=== PATIENT | male | born 1955 | race Caucasian/White ===

== ENCOUNTER → 2019-03-24 | Outpatient (CLI) | payer BC ==
[~2019-03-24] MED LIST: CRES40TA PO; D3 H10002 PO; LISI10TA2 PO; METF500T4 PO; NEXI40CA PO; SUCR1SS PO; TRAD5TAB PO
--- NOTE | 2019-03-24 15:27 | RADONC ---
RADIATION ONCOLOGY CONSULTATION NOTE DATE: 03/24/2019 CHART NUMBER: [id number] DIAGNOSIS: Adenocarcinoma, distal esophagus. STAGE: IIIB, T3N2M0. ICD 10 CODE: C15.5 ECOG PERFORMANCE STATUS: 0. HISTORY OF PRESENT ILLNESS: The patient is a 63-year-old man who has a long history of GERD. He was seen by his primary care physician earlier in 2019 with a history of dysphagia associated with weight loss. He had been treated for gastroesophageal reflux disease previously. He was also seen by Dr. José Galvan MD where an upper and lower endoscopy was performed on 02/02/2019. A biopsy of the distal esophagus showed a moderately to poorly differentiated invasive adenocarcinoma. H pylori was negative. A CT scan of the chest was obtained on 02/11/2019 which revealed mediastinal lymphadenopathy, probable right hilar lymphadenopathy as well as mesenteric lymphadenopathy. A 02/16/2019 EGD with EUS revealed the distal esophagus to be stenosed. He underwent a dilatation with endoclip placement. The lesion was felt to be compatible with a T3 lesion with a paraesophageal lymph node seen measuring 1.6 cm and a subcarinal lymph node measuring 4.7 cm. Needle biopsies were nondiagnostic. On 02/02/2019 where the distal esophageal biopsy proved to be a moderately to poorly differentiated invasive adenocarcinoma. The patient had seen various consultants and a PET scan was obtained revealing an esophageal stent and soft tissue densities along the superior and inferior aspects of this stent with avid metabolic activity and a SUV max of 12.8. The paraesophageal area revealed an SUV of 2.1. Gastrohepatic chain lymphadenopathy was noted with an SUV max of 5.7 consistent with metastatic disease. Diffuse increase activity with bilateral adrenal gland activity was noted left greater than the right and this was felt to be related to possible stress-induced activity or metastatic disease. Soft tissue densities were seen just deep to the umbilicus, which was not favored to represent metastatic disease and was felt to possibly be related to infectious or an inflammatory process. The patient has seen Dr. Pearl Avila for evaluation of systemic chemotherapy and comes to us today to review the options of external beam radiotherapy. PAST MEDICAL HEALTH: Xri-dyuiorf-auewyimpq diabetes, hypertension, hypercholesterolemia, gastroesophageal reflux disease. ALLERGIES: Denied. FAMILY HISTORY: The patient apparently has a history in the family of GI malignancies and a sister with breast cancer. SOCIAL HISTORY: Single. 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 Alcohol history - rare. Smoking history - he smoked one pack per day for approximately 40 years and quit recently in 2019. MEDICATIONS: Vitamin D, esomeprazole 40 mg daily, linagliptin 5 mg daily, sucralfate 10 mg four times a day. REVIEW OF SYSTEMS: CONSTITUTIONAL: He has had a recent decrease in his appetite and has lost weight secondary to his dysphagia. He has actually lost weight from 225 earlier this year to 196 currently. HEENT: Denies any head pain, throat pain, intraoral lesions or abnormalities. Eyes: Denies visual disturbances, focal visual field defects or eye pain. RESPIRATORY: Denies any difficulty breathing, coughing, sputum production or hemoptysis. CARDIOVASCULAR: Denies any previous history of significant cardiovascular disease and also does not note any rhythmic irregularities or angina. GASTROINTESTINAL: Denies abdominal pain, nausea, vomiting, diarrhea, dysuria, hematuria or blood per rectum. MUSCULOSKELETAL: Denies any pain, difficulty with bone pain, joint pain. NEUROLOGIC: Denies any focal motor or neurologic deficits. SKIN: Negative. NEUROLOGIC: Denies any seizure disorder headaches or focal neurologic deficits. The patient primarily has had progressive odynophagia and dysphagia until most recently when he underwent stent placement but did not tolerate the stent well and has hence had the stent removed. Since the removal of the stent he has had no pain upon swallowing and although he has to wait for the food to pass the partially obstructed lesion in the distal esophagus he does not have any major discomfort. EXAMINATION FINDINGS: The patient is a well-nourished man in no acute distress. BP 116/70, temperature 97.2, pulse 63, respirations 18, height 6 feet, weight 196, O2 saturation 99%. HEENT: Normocephalic. EOMs intact. PERRLA. Fundi benign. LYMPHATICS: No palpable peripheral lymphadenopathy is appreciated in the cervical, supraclavicular, axillary or inguinal lymph node chains. LUNGS: Are clear to auscultation and to percussion. HEART: Regular without murmurs. ABDOMEN: Without evidence of hepatomegaly, masses or deep abdominal tenderness. EXTREMITIES: Without cyanosis, clubbing or edema. NEUROLOGIC EXAMINATION: Physiologic. IMPRESSION: Poorly differentiated adenocarcinoma involving the distal esophagus with partial obstruction. He is status post stent placement but the stent has been recently removed because of poor tolerance. He has periesophageal lymphadenopathy as well as a 4.7 subcarinal lymph node. Stage IIIB, T3, N2, M0. H pylori negative. PLAN OF RADIOTHERAPY: The patient may well be a candidate for local regional radiotherapy with concomitant chemotherapy. Dr. Avila has seen the patient and is considering that the patient may be a candidate for CarboTaxol. We would anticipate that the patient would benefit from external beam radiotherapy given in a neoadjuvant fashion. He has already seen a surgeon who has evaluated him and we would recommend after the administration of concomitant chemotherapy and radiotherapy that the patient be reassessed for surgery at that time. If the patient is not a candidate for surgery, we will proceed with more definitive radiotherapy/chemotherapy. The indications and possible side effects of radiotherapy as well as potential alternatives have been explained to the patient in detail. He understands and is willing to proceed as outlined. He is aware that we cannot guarantee that he will be a surgical candidate after the completion of neoadjuvant radiotherapy and will have to be evaluated by a surgeon. Should the patient not be a candidate for surgery more extensive radiotherapy and continuing chemotherapy may indeed be in order but at this time we will be treating him with neoadjuvant chemoradiation with a presumptive intent of surgical resection if possible. Thank you for referring this very fine gentleman to us and allowing us the opportunity of participation in his overall management. cc: MD Pearl Hayes MD Andrew T. Pellecchia, MD
== END ==
LOC: M ONCR 08:57
PROVIDERS: ATTEND Radiology Radiation Oncology
DX: C15.9 Malignant neoplasm of esophagus, unspecified (principal)

== ENCOUNTER 2019-04-02 14:21 | Inpatient (IN) | payer BC ==
[~2019-04-02] VITALS: Ht 182.9 cm; Wt 86.3 kg
[2019-04-02] MEDS ORDERED: MORPHINE 4 MG/ML 1ML VIAL/SYRINGE (J2270) IV PRN ×2 (15:30)
[2019-04-02] MEDS ORDERED: ACETAMINOPHEN TAB 650MG DOSE (2X325MG) PO PRN (15:30)
[2019-04-02] MEDS ORDERED: ONDANSETRON 4MG/2ML VIAL (J2405) IV PRN (15:30)
--- NOTE | 2019-04-02 15:52 | ED PDOC ---
Post-Departure Follow-Up The patient was not seen by any ED providers. He was a private patient of Dr. Shemar dueñas. This provider's name appears on the record for disposition purposes only, due to limitations of the EMR. Saji Perez M.D. Apr 02, 2019 15:52
[2019-04-02] MEDS: NS 1,000 ML IV SCH (16:06)
[2019-04-02] MEDS: PIPERACILLIN/TAZOBACTAM SOD 3.375 GM in D5W MINI-BAG PLUS 50 ML IV SCH ×2 (16:06→21:37)
[2019-04-02] MEDS ORDERED: MORP20SOL PO (16:28)
[2019-04-02] MEDS ORDERED: ISOVUE-370 76% 100ML VIAL (Q9967) As Ordered ONE (16:37)
[2019-04-02] MEDS ORDERED: VANCOMYCIN HCL 1,000 MG, VIAL MATE ADAPTER 1 EACH in D5W 250 ML IV ONE (17:00)
--- NOTE | 2019-04-02 17:07 | HPE ---
DATE OF ADMISSION: 04/02/2019 ADMITTING DIAGNOSIS: Gastrostomy tube site infection. HISTORY OF PRESENT ILLNESS: The patient is a pleasant 63-year-old man who was recently diagnosed with esophageal cancer. He apparently had developed significant dysphasia and underwent endoscopy I believe at [facility] in [place]. He was found to have a distal esophageal mass with biopsy showing carcinoma. He had a esophageal stent placed but apparently had significant discomfort and persistent difficulty swallowing and this was subsequently removed about 10 days ago. He has been seen by Dr. Avila of medical oncology and Dr. Cosby of radiation oncology. He has seen a thoracic surgeon in [place]. Planning is underway for chemo radiation and presumably resection. He was seen by Dr. Yu who on March 28 placed a percutaneous endoscopic gastrostomy (PEG) tube. The patient reports that he had some discomfort that was fairly mild initially but has increased over the last several days. Since , 03/31/2019, the discomfort has become much more severe. He has had some low grade fevers and significantly worsening pain. He was seen today at where examination revealed pus draining from around the tube with an area of marked redness and tenderness extending up to 10 cm out and inferiorly from the tube site. He was referred back to [facility] and is now being admitted for treatment. ALLERGIES: The patient has no reported known drug allergies. CURRENT MEDICATIONS: - Nexium 40 mg by mouth twice daily - Tradjenta 5 mg by mouth daily PAST SURGICAL HISTORY: Significant for a laparoscopic cholecystectomy in 2016. He has had a colonoscopy several years ago. He had an umbilical herniorrhaphy also back in June 2017. His esophageal stent was placed in February. The PEG tube was placed on March 28, 2019. MEDICAL HISTORY: Significant for hypertension. He has had hypercholesterolemia. He has diagnosis of esophageal cancer and also has diabetes mellitus. SOCIAL HISTORY: Patient has a significant other who accompanies him to the emergency department. He is a former smoker of one pack per day for 40 years and quit last month. He denies any significant alcohol intake. The patient lives in [place] and his primary physician is Dr. Wu. FAMILY HISTORY: Significant for coronary artery disease. REVIEW OF SYSTEMS: Reveals no chest pain or palpitations. He denies shortness of breath, cough or wheezing. He has had pretty good swallowing recently and has not started using the G tube yet. He denies any dysuria or hematuria. He has had no major bone or joint problems. PHYSICAL EXAMINATION: Reveals a pleasant man obviously in some discomfort lying quietly on the emergency room stretcher. Skin: Is warm and dry. HEENT: Sclerae are anicteric. Mucous membranes are moist. Neck is supple. Heart: Exam shows a regular rhythm. Lungs are clear to auscultation. The abdomen shows a 20-Maltese G tube exiting the left upper quadrant. He has an area of redness approximately 15-18 cm wide x 12 cm or so superior to inferior centered on the area of the tube placement. As the tube is tilted to examine beneath the retention disk there is release of some thick foul-smelling green-brown pus. He has marked tenderness surrounding the insertion site. The lower aspects of the abdomen are nontender and soft. Lower extremities are without edema. He has intact radial and pedal pulses. LABORATORY DATA: Laboratory studies which had been obtained at [facility] include a complete blood count (CBC) with a differential showing a white count of 16,000, hemoglobin of 12, hematocrit of 35 and platelet count of 259,000. Differential count shows 76% neutrophils, 12% lymphocytes and 12% monocytes. Chemistry profile showed a sodium of 137, potassium 3.7, chloride 102, CO2 of 23, BUN of 10, creatinine 0.7 and a glucose of 92. His total bilirubin is slightly elevated at 1.3 but the other liver function tests are normal. His total protein is 6.8 and the albumin is slightly below normal at 2.8. IMPRESSION: 1. Significant soft tissue infection at the G tube site. 2. Esophageal cancer pending chemo radiation. 3. Diabetes mellitus. 4. Hypertension. 5. History of hypercholesterolemia. PLAN: The patient has what appears to be a fairly serious infection. I have recommended given his severe pain and the infection that he be admitted to the hospital. I will obtain a CT scan to try to better ascertain the extent of his subcutaneous infection and look for any evidence of something serious such as necrotizing fasciitis. I will give him broad-spectrum antibiotics given his recent healthcare experienced to include vancomycin and piperacillin tazobactam. He will be allowed to take a diet if desired. We will start twice daily wound care to the G-tube site. I will provide him with analgesics as necessary. The patient was to start his chemo radiation this coming week and unfortunately this infection is likely to set that back some. The patient and his girlfriend were counseled regarding the plan for care. I have obtained a swab for stat Gram stain and culture and sensitivity from the wound. We will recheck his laboratories in the morning.
[2019-04-02 17:30] VITALS: BP 118/62
[2019-04-02] MEDS: OMEPRAZOLE 20 MG CAP PO SCH (21:34)
[2019-04-02] MEDS: DOCUSATE SODIUM 100 MG CAP PO SCH (21:34)
[2019-04-02 22:00] VITALS: BP 124/62
[2019-04-02] MEDS: VANCOMYCIN HCL 1,000 MG, VIAL MATE ADAPTER 1 EACH in D5W 250 ML IV SCH (23:07)
[2019-04-03 02:00] VITALS: BP 119/65
[2019-04-03] MEDS: PIPERACILLIN/TAZOBACTAM SOD 3.375 GM in D5W MINI-BAG PLUS 50 ML IV SCH ×4 (04:54→21:05)
[2019-04-03] MEDS: NORCO, ANEXSIA 5/325MG TABLET (HYDROcodone/ACETAMINOPHEN) PO PRN ×4 (05:04→23:07)
[2019-04-03 06:00] VITALS: BP 116/64
[2019-04-03 06:23] LABS: BASO % 0.2 % (0.0-1.0); EOS # 0.1 10^3/uL (0.0-0.50); EOS % 0.5 % (0.0-3.0); HEMATOCRIT 32.9 % (42.0-52.0); HEMOGLOBIN 11.2 g/dl (13.5-17.5); LYMPH # 1.7 10^3/uL (1.5-4.5); LYMPH % 12.8 % (24.0-44.0); MEAN CORPUSCULAR HEMOGLOBIN 31.4 pg (27.0-33.0); MEAN CORPUSCULAR VOLUME 92.2 fl (80.0-96.0); MONO # 1.6 10^3/uL (0.0-0.8); MONO % 12.2 % (0.0-5.0); NEUTROPHILS # 9.6 10^3/uL (1.8-7.7); NEUTROPHILS % 73.9 % (36.0-66.0); PLATELET COUNT, AUTOMATED 272 10^3/uL (150-450); RED BLOOD COUNT 3.57 10^6/uL (4.30-6.10); WHITE BLOOD COUNT 12.9 10^3/uL (4.0-10.0)
[2019-04-03 06:41] LABS: BLOOD UREA NITROGEN 7 MG/DL (7-18); CALCIUM LEVEL 8.2 MG/DL (8.8-10.2); CARBON DIOXIDE LEVEL 26 MEQ/L (21-32); CHLORIDE LEVEL 104 MEQ/L (98-107); CREATININE FOR GFR 0.68 MG/DL (0.70-1.30); GLOMERULAR FILTRATION RATE > 60.0 (>49); GLUCOSE, FASTING 100 MG/DL (70-100); POTASSIUM SERUM 3.5 MEQ/L (3.5-5.1); SODIUM LEVEL 138 MEQ/L (136-145)
[2019-04-03] MEDS: VANCOMYCIN HCL 1,000 MG, VIAL MATE ADAPTER 1 EACH in D5W 250 ML IV SCH ×3 (06:50→23:07)
[2019-04-03] MEDS: NS 1,000 ML IV SCH ×4 (08:00→23:06)
--- NOTE | 2019-04-03 08:52 | REP ---
CT ABDOMEN WITH IV CONTRAST: TECHNIQUE: Axial contrast enhanced images from the lung bases to the pubic symphysis using 100 mL Isovue 370 intravenous contrast material with multiplanar reformations. COMPARISON: 03/04/2019 from outside institution. The visualized lung bases demonstrate mild fibroatelectatic change. A gastrostomy tube is seen anteriorly entering the stomach. At that location of the anterior abdominal wall there is diffuse soft tissue edema and cellulitis with thickening of the left rectus muscle. No abscess collection is seen. The patient has had a prior cholecystectomy. There is focal fatty infiltration of the liver anteriorly along the fissure for the ligamentum teres. Spleen, right adrenal, and pancreas are unremarkable. There is a small left adrenal nodule 1.3 cm in diameter which may represent an adenoma. 1 cm cyst is seen in the upper pole of the right kidney. There are two cysts in the mid left kidney, the larger measuring 2.7 cm. There is no hydronephrosis. There is atherosclerotic calcification of the abdominal aorta without aneurysm. Multiple subcentimeter lymph nodes are seen in the periaortic region and throughout the mesentery. There is an enlarged lymph node in the gastrohepatic ligament which has increased in size since prior studies and may be reactive measuring 3.2 x 1.5 cm. Distal esophagus appears thickened. No free air or free fluid seen. IMPRESSION: Gastrostomy tube present with findings most consistent with cellulitis of the anterior abdominal wall at its entrance site. There is thickening of the left rectus muscle. No abscess collection is seen in the abdominal wall. 1.3 cm left adrenal nodule probably represents an adenoma. Bilateral renal cysts. Multiple scattered subcentimeter lymph nodes throughout the abdomen with an enlarged lymph node in the gastrohepatic ligament which has increased in size since prior studies measuring 3.2 x 1.5 cm. This may be reactive. No intra-abdominal abscess or free fluid. Electronically Signed by Onur Berger MD 04/03/2019 04:18 P
[2019-04-03] MEDS: DOCUSATE SODIUM 100 MG CAP PO SCH ×2 (09:13→21:05)
[2019-04-03] MEDS: OMEPRAZOLE 20 MG CAP PO SCH ×2 (09:14→21:05)
[2019-04-03] MEDS: ENOXAPARIN 40 MG/0.4 ML SYRINGE (J1650) SC SCH (09:14)
[2019-04-03 10:00] VITALS: BP 116/63
--- NOTE | 2019-04-03 10:16 | PHACANCOPD ---
PHARMACY VANCOMYCIN DOSING Pt Demographics Demographics Patient Age:63 , Weight:86.300 , Gender: male Adjusted Body Weight Date: 04/03/19, Adjusted Body Weight: Kg Events Past 24 Hours Events Past 24 Hours: NO: Dialysis, Diuretic Therapy, Change in CrCl, Fever, Elevation in WBC, Pending Diagnostics, Pending Procedures, Other Vancomycin Vancomycin indication: post-op infection Vancomycin Target Ranges: 10-20 mcg/ml Vancomycin Load Y/N: Yes Load Dose Date Time Vancomycin Load Dose: 1000mg Date: 04/02 Time: ~18:30 Vancomycin Dose Date: 04/02/19. Current Vancomycin Dose: [1g IV q8h @23] Intermittent Dosing?: No Labs Labs Item Value Date Time White Blood Count 12.9 10^3/uL H 04/03/19 0547 Creatinine 0.68 MG/DL L 04/03/19 0546 Micro Microbiology 04/02/19 Gram Stain - Final, Resulted 04/02/19 Wound Culture, Resulted Pending Creatinine Clearance Date:04/03/19. Creatinine Clearance: [>100 ml/min]. Pending Labs Vanco trough scheduled 04/04 @06:00 Assessment and Plan Maintaining Current Dose?: Yes Reason for dose change: No Dose Change Pharmacist Note Pharmacist Note Date: 04/03/19. Pharmacist note: pt has been started on Zosyn and Vancomycin for a infected post-op PEG site. He has not been on vancomycin at our facility in the past. He has recently been diagnosed with esophageal cancer. He received vancomycin 1g last night at ~18:30 and I started him on 1g IV q8h ~4.5 hours later. Would culture is pending. I have a trough scheduled for tomorrow morning. We will continue to monitor and make adjustments as necessary. Daryn Hughes Pharm.D. Apr 03, 2019 10:16
[2019-04-03 14:00] VITALS: BP 135/71
[2019-04-03 22:00] VITALS: BP 126/70
[2019-04-04 02:00] VITALS: BP 131/67
[2019-04-04] MEDS: PIPERACILLIN/TAZOBACTAM SOD 3.375 GM in D5W MINI-BAG PLUS 50 ML IV SCH ×4 (04:56→21:28)
[2019-04-04 06:00] VITALS: BP 125/70
[2019-04-04 06:13] LABS: BASO % 0.4 % (0.0-1.0); EOS # 0.2 10^3/uL (0.0-0.50); EOS % 1.8 % (0.0-3.0); HEMATOCRIT 34.3 % (42.0-52.0); HEMOGLOBIN 11.6 g/dl (13.5-17.5); LYMPH # 1.3 10^3/uL (1.5-4.5); LYMPH % 16.1 % (24.0-44.0); MEAN CORPUSCULAR HGB CONC 33.8 g/dl (32.0-36.5); MEAN CORPUSCULAR VOLUME 94.5 fl (80.0-96.0); MONO % 12.2 % (0.0-5.0); NEUTROPHILS # 5.8 10^3/uL (1.8-7.7); NEUTROPHILS % 69.3 % (36.0-66.0); PLATELET COUNT, AUTOMATED 283 10^3/uL (150-450); RED BLOOD COUNT 3.63 10^6/uL (4.30-6.10); WHITE BLOOD COUNT 8.3 10^3/uL (4.0-10.0)
[2019-04-04] MEDS: VANCOMYCIN HCL 1,000 MG, VIAL MATE ADAPTER 1 EACH in D5W 250 ML IV SCH ×3 (06:53→21:28)
[2019-04-04] MEDS ORDERED: ONDA8TAB7 PO (08:10)
[2019-04-04] MEDS ORDERED: PROC10TA4 PO (08:10)
[2019-04-04] MEDS: OMEPRAZOLE 20 MG CAP PO SCH ×2 (09:26→21:28)
[2019-04-04] MEDS: ENOXAPARIN 40 MG/0.4 ML SYRINGE (J1650) SC SCH (09:26)
[2019-04-04] MEDS: DOCUSATE SODIUM 100 MG CAP PO SCH ×2 (09:26→21:28)
--- NOTE | 2019-04-04 09:56 | IPN ---
DATE: 04/03/2019 HISTORY: The patient was admitted yesterday with cellulitis and abscess formation around a recently implanted percutaneous endoscopic gastrostomy. He reports he is feeling better today on his current antibiotics. There is much less pain. Vital signs show that he has been afebrile since admission. His pulse is in the 70s to 90s today and his blood pressure is good. Intake and Output: He has been taking some oral fluids. His urine output today is brisk with a combination of his oral intake and his IV fluid. PHYSICAL EXAMINATION: The patient is looking much more comfortable lying in the hospital bed today. Examination of the abdomen shows that there is no further pus draining around the tube, but the edges of the wound do look still somewhat dark. The area of redness is diminished, but there is still an area of induration particularly to the right of the insertion site that is quite indurated and tender. LABORATORY STUDIES: Today he has a white count of 13 with a hemoglobin of 11, hematocrit of 33 and a platelet count of 272,000. Differential count shows 74% neutrophils, 13% lymphocytes and 12% monocytes. A chemistry profile shows normal electrolytes with a BUN of 7, creatinine of 0.7 and a glucose of 100. Gram stain from his wound yesterday shows many white cells with many gram-positive cocci in chains and many gram-negative rods. IMPRESSION: The patient is responding well to his antibiotic therapy for his infected G-tube site. PLAN: We will await his culture results and continue the Zosyn and vancomycin in the interim. I will cut back his IV rate as he is taking some fluids adequately orally. Hopefully, he will be ready for discharge in the next 24-48 hours, but we need to see his culture report to determine continuing antibiotic therapy.
[2019-04-04 10:00] VITALS: BP 133/78
[2019-04-04] MEDS: NORCO, ANEXSIA 5/325MG TABLET (HYDROcodone/ACETAMINOPHEN) PO PRN ×2 (13:38→21:38)
[2019-04-04 14:00] VITALS: BP 141/79
[2019-04-04 18:00] VITALS: BP 139/80
--- NOTE | 2019-04-04 22:46 | IPN ---
DATE: 04/04/2019 HISTORY: The patient was admitted on 04/02/2019 with a severe infection at the site of a recently implanted gastrostomy tube. He was started on vancomycin and Zosyn for broad antibiotic coverage. He reports that he is feeling much better today with significantly decreased pain. The amount of discharge seems to have decreased as well. Vital signs: Show that he has been afebrile over the past 24 hours. His pulse is in the 60s and 70s. Blood pressure is good. Intake and output shows that yesterday he had 4000 in with 3300 out. Physical exam shows that the redness is effectively resolved. He still has some mild induration extending out about 3-4 cm from the G-tube site, but the tenderness is significantly reduced. The drainage is quite reduced as well. Laboratory studies show that his white count is down to normal at 8 with a differential showing 69% neutrophils, 16% lymphocytes, and 12% monocytes. Hemoglobin is 12 with a hematocrit of 34 and the platelet count is 283,000. Culture results are still pending. The gram stain had shown gram-positive cocci and gram-negative rods. IMPRESSION: The patient is improving rapidly from his wound infection from his G-tube placement. PLAN: I will continue his vancomycin and Zosyn until tomorrow. Hopefully by then we will have his culture results available and be able to discharge him on antibiotics based on these culture results. If the results are not yet available but he is still doing well, I will discharge him on some antibiotics and then reassess these once the culture results are back.
[2019-04-05 01:53] VITALS: BP 125/78
[2019-04-05] MEDS: PIPERACILLIN/TAZOBACTAM SOD 3.375 GM in D5W MINI-BAG PLUS 50 ML IV SCH ×2 (05:21→10:19)
[2019-04-05 06:00] VITALS: BP 129/77
[2019-04-05] MEDS: VANCOMYCIN HCL 1,000 MG, VIAL MATE ADAPTER 1 EACH in D5W 250 ML IV SCH ×2 (06:29→15:01)
[2019-04-05] MEDS: OMEPRAZOLE 20 MG CAP PO SCH (08:58)
[2019-04-05] MEDS: DOCUSATE SODIUM 100 MG CAP PO SCH (08:58)
[2019-04-05] MEDS: ENOXAPARIN 40 MG/0.4 ML SYRINGE (J1650) SC SCH (08:59)
[2019-04-05 10:00] VITALS: BP 143/78
[2019-04-05 10:32] LABS: BLOOD UREA NITROGEN 4 MG/DL (7-18); CALCIUM LEVEL 8.6 MG/DL (8.8-10.2); CARBON DIOXIDE LEVEL 27 MEQ/L (21-32); CHLORIDE LEVEL 106 MEQ/L (98-107); CREATININE FOR GFR 0.81 MG/DL (0.70-1.30); GLOMERULAR FILTRATION RATE > 60.0 (>49); GLUCOSE, FASTING 105 MG/DL (70-100); POTASSIUM SERUM 3.8 MEQ/L (3.5-5.1); SODIUM LEVEL 139 MEQ/L (136-145)
[2019-04-05 14:00] VITALS: BP 139/82
[2019-04-05] MEDS ORDERED: FLAG250T PO (15:29)
[2019-04-05] MEDS ORDERED: BACT800T5 PO (15:29)
--- NOTE | 2019-04-06 10:23 | IPN ---
DATE: 04/05/2019 HISTORY: The patient was admitted on the afternoon of the 02 of April with a severe infection at the site of a recent gastrostomy tube placement. Cultures were obtained which have been growing several organisms, but these have not yet been identified and antibiotic sensitivities have not been determined. He is feeling much better today. The tenderness has gone down even since yesterday and he has been afebrile. He has been able to take some regular food. Vital signs show that he has been old afebrile over the past 24 hours. Pulses in the 70s. His blood pressure is normal. Intake and output show that yesterday he had 2800 mL in with 2300 mL out. He is voiding well and had a bowel movement yesterday. Physical exam shows that the abdomen is flat and soft. The induration around the G-tube site is much improved and the redness is completely resolved. There is very little tenderness now. The G-tube site itself looks clean and when the tube is gently moved there is no further drainage of pus around the tube. IMPRESSION: The patient is doing much better now on hospital day 3 from treatment of severe infection at his G tube site. His culture results are still pending, though I was told by the supervisor laboratory when I called that there are several organisms being identified to be determined. PLAN: The patient is doing well enough that I will send him home on oral antibiotics. I will send him home on Septra and Flagyl. These should cover the possibility of Methicillin-resistant Staphylococcus aureus (MRSA) and other organisms that would usually be encountered in such an infection. I can reassess the adequacy once the final culture and sensitivities are back. He is not requiring any prescription pain medications at this time. He will need to reconnect with medical oncology to determine the timing of his start of chemotherapy and I will alert their office that he is being discharged home. I have recommended that he follow-up in my office either with myself or one of my colleagues in the next 10 days or so to ensure that he continues to do well. He will be given five days worth of antibiotics with the Septra and Flagyl.
== END 2019-04-05 15:55 | disposition home or self-care (01) | DRG 252 ==
LOC: EDBD 14:21 → M ED 14:21 → M ED INP 15:28 → M MS5PR 17:30
PROVIDERS: ADMIT Surgery; ATTEND Surgery
DX: K94.22 Gastrostomy infection (principal); L03.311 Cellulitis of abdominal wall; C15.3 Malignant neoplasm of upper third of esophagus; Z79.899 Other long term (current) drug therapy; I10 Essential (primary) hypertension; E11.9 Type 2 diabetes mellitus without complications; Z87.891 Personal history of nicotine dependence

== ENCOUNTER 2019-04-15 08:47 | Outpatient (RCR) | payer BC ==
--- NOTE | 2019-03-29 09:53 | RADONC ---
RADIATION ONCOLOGY SIMULATION NOTE DATE: 03/29/2019 CHART #: [id number] Mr. Celaya was taken to the CT scan for CT simulation of his lower esophageal field. CT was accomplished without difficulty or discomfort. Radiation treatment planning is underway and radiation treatments will begin subsequently. An immobilization device was created without difficulty or discomfort. It will be used throughout the course of treatment. I was physically present throughout the course of CT simulation.
--- NOTE | 2019-03-31 08:46 | MEDONCTEEN ---
MEDICAL ONCOLOGY TELEPHONE NOTE DATE: 03/30/2019 Testing on the diagnostic biopsy from [facility] for HER2 came back as negative for evidence of neoplastic tissue on the H and E slide, and FISH or HER2 was not performed. I spoke with the scientific laboratory supervisor Deepika. They confirmed that the correct block was sent. [facility] She will speak with her attending doctor/pathologist tomorrow to make sure there isn't additional tissue that could be evaluated but she speculates the tissue sample was so small that to little remained in the block that was sent. I asked if there were additional already prepped slides that could be used, and she said no. Thus we may have no knowledge of HER2 status and possibly will need a rebiopsy to obtain at. I will await Deepika's call back, I gave her my cell to get in touch with me. The block in question was done at [facility] [phone]. Diagnosis number A with moderate to poorly differentiated invasive adenocarcinoma. There was, in addition to that case, a small bowel biopsy and antrum biopsy done on the same , but she confirms that the correct block from that overall case was sent for evaluation. addendum 03/31/19: an additional H E slide was found for HER2 testing and this will be done Electronically Signed by Pearl Avila MD 03/31/2019 11:20 A DD: Pearl Avila MD 03/30/2019 12:32 P DT: [email or web address] 03/31/2019 08:40 A CC:
[~2019-04-15 08:47] MED LIST changes: +BACT800T5 PO; +FLAG250T PO; +MORP20SOL PO; +ONDA8TAB7 PO; +PROC10TA4 PO
== END 2019-04-17 ==
LOC: M ONCR 08:47
PROVIDERS: ATTEND Radiology Radiation Oncology
DX: C15.5 Malignant neoplasm of lower third of esophagus (principal)

== ENCOUNTER 2019-05-17 08:51 | Outpatient (RCR) | payer BC ==
--- NOTE | 2019-04-18 09:58 | RADONC ---
RADIATION ONCOLOGY PROGRESS NOTE DATE: 04/18/2019 CHART #: [id number] DIAGNOSIS: Mr. 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 His dose to date is 1080 cGy of an anticipated 3960 cGy and treatments appear to be doing relatively well. REVIEW OF SYSTEMS: He denies any nausea, vomiting, diarrhea, odynophagia, dysphagia or significant weight loss. His energy level is such that he is able to maintain most day-to-day activities without any alteration of his lifestyle. The patient denies any skin irritation. EXAMINATION FINDINGS: The skin within the irradiated volume shows neither erythema nor desquamation. Lymphatics: No palpable peripheral lymphadenopathy is appreciated. Lungs are clear. The remainder of the physical examination is unchanged. IMPRESSION: Tolerating therapy well. PLAN: Treatments to continue. MTDD
--- NOTE | 2019-04-25 10:27 | RADONC ---
RADIATION ONCOLOGY PROGRESS NOTE DATE: 04/25/2019 CHART NUMBER: [id number] Mr. Celaya is presently at a dose of 1620 cGy to his esophagus and is tolerating treatments quite well at this point with no complaints related to his radiation therapy other than some hesitancy with swallowing. He does not call it pain at this time. The patient's review of systems is positive for some difficulty swallowing dry foods but is otherwise noncontributory. He denies nausea, vomiting, fevers, chills, night sweats, diplopia, headaches, anxiety or depression, anorexia, weight loss, visual disturbances, chest pain, urinary or bowel difficulties, bone pain, or neurological problems. PHYSICAL EXAMINATION: The patient's skin is in good condition with no evidence of moist or dry desquamation. The remainder of his physical exam remains unchanged. Mr. Celaya is tolerating treatments quite well and radiation will continue as scheduled.
--- NOTE | 2019-05-02 14:37 | RADONC ---
RADIATION ONCOLOGY PROGRESS NOTE: DATE: 05/02/2019 CHART NUMBER: [id number] Mr. Celaya is presently at a dose of 2520 cGy to his esophagus and overall is tolerating his treatments quite well with no significant difficulties related to his radiation therapy other than feeling of his food getting stuck a little bit. REVIEW OF SYSTEMS: The patient's review of systems is positive for some mild difficulty with swallowing solid foods but is otherwise noncontributory. He denies nausea, vomiting, fevers, chills, night sweats, diplopia, headaches, anxiety or depression, anorexia, weight loss, visual disturbances, chest pain, urinary or bowel difficulties, bone pain, or neurological problems. PHYSICAL EXAMINATION: The patient's skin is in good condition with no evidence of moist or dry desquamation. The remainder of the physical exam remains unchanged. Mr. Celaya is tolerating treatments quite well and radiation will continue as scheduled.
--- NOTE | 2019-05-11 06:50 | RADONC ---
RADIATION ONCOLOGY PROGRESS NOTE DATE: 05/10/2019 CHART #: [id number] Mr. Celaya is presently at a dose of 3420 cGy to his esophagus and is tolerating treatments quite well at this point with no significant difficulties related to his radiation therapy other than some difficulty swallowing hard dry foods or steak. REVIEW OF SYSTEMS: The patient's review of systems is positive for some difficulty swallowing hard or dry foods which seem to get stuck in his upper throat, but is otherwise noncontributory. Denies nausea, vomiting, fevers, chills, night sweats, diplopia, headaches, anxiety or depression, anorexia, weight loss, visual disturbances, chest pain, urinary or bowel difficulties, bone pain, or neurological problems. PHYSICAL EXAMINATION: The patient's skin is in excellent condition with no evidence of radiation change present. There is no moist or dry desquamation. The remainder of his physical exam remains unchanged. Mr. Celaya is tolerating treatments quite well and radiation will continue as scheduled.
--- NOTE | 2019-05-17 08:09 | RADONC ---
RADIATION ONCOLOGY PROGRESS NOTE DATE: 05/16/2019 CHART #: [id number] Mr. Celaya is presently at a dose of 4320 cGy to his esophagus and is overall tolerating treatments quite well with no significant difficulties related to his radiation therapy. He is having no significant pain or discomfort. REVIEW OF SYSTEMS: The patient's review of systems is noncontributory. Denies nausea, vomiting, fevers, chills, night sweats, diplopia, headaches, anxiety or depression, anorexia, weight loss, visual disturbances, chest pain, urinary or bowel difficulties, bone pain, or neurological problems. PHYSICAL EXAMINATION: The patient's skin is in good condition with no evidence of moist or dry desquamation. The remainder of his physical exam remains largely unchanged. Mr. Celaya is tolerating treatments quite well and radiation will continue as scheduled.
[~2019-05-17 08:51] MED LIST changes: +LISI10TA15 PO; -LISI10TA2 PO; +MAGICMW SSP; +METF-791 PO; -METF500T4 PO; +ONDA8TAB10 PO; -ONDA8TAB7 PO
--- NOTE | 2019-05-18 14:11 | RADONC ---
RADIATION ONCOLOGY TREATMENT SUMMARY: DATE: 05/17/2019 CHART NUMBER: [id number] DIAGNOSIS: Adenocarcinoma, distal esophagus. STAGE: III B, T3, N2, M0 ECOG PERFORMANCE STATUS: 0 Mr. Celaya is a 63-year-old white male with the diagnosis of a stage III B, T3, N2, [id number] of the distal esophagus who presented to us for consideration of preoperative radiation therapy combined with chemotherapy as a therapeutic option. We treated the patient to his esophagus for a total dose of 4500 cGy delivered in 25 fractions of 180 cGy each over 35 elapsed days from 04/11/2019 through 05/17/2019. The patient's esophagus was treated on a linear accelerator utilizing a 3D conformal technique utilizing a 15 MV photon beam. We initially treated the patient with anterior and posterior parallel opposed chau for a dose of 3960 cGy and subsequently delivered the final three fractions utilizing oblique chau in order to maintain the spinal cord and other structures within tolerance limits. Mr. Celaya tolerated his treatments quite well and was able complete therapy as prescribed without interruption. He is scheduled to see his surgeon Dr. Dave Fall MD for discussion of subsequent surgery. In addition, I have set him up to see me again in routine followup visit in one months' time. cc: Jamey Archuleta MD
[2019-08-01] MEDS ORDERED: ZANT150T40 PO (14:38)
[2019-08-03] MEDS ORDERED: LOVE1INJ SC (10:24)
[2019-09-05] MEDS ORDERED: CHLOR25TA PO (09:02)
[2019-09-19] MEDS ORDERED: ESOM20CA25 PO (08:23)
[2019-10-18] MEDS ORDERED: METF-791 PO (08:51)
== END 2019-05-18 ==
LOC: M ONCR 08:51
PROVIDERS: ATTEND Radiology Radiation Oncology
DX: C15.5 Malignant neoplasm of lower third of esophagus (principal)

== ENCOUNTER → 2019-06-15 | Outpatient (CLI) | payer BC ==
[~2019-06-15] MED LIST changes: -ONDA8TAB10 PO; +ONDA8TAB7 PO
--- NOTE | 2019-06-17 06:21 | RADONC ---
RADIATION ONCOLOGY FOLLOWUP NOTE DATE: 06/15/2019 CHART #: [id number] Mr. Celaya is presenting to us today for routine followup visit 1 month post completion of preoperative radiation therapy to his esophagus. The patient is doing quite well at this point with no complaints at this time related to his radiation therapy. He is having no difficulties with his feeding tubes. REVIEW OF SYSTEMS: The patient's review of systems is largely noncontributory. Denies nausea, vomiting, fevers, chills, night sweats, diplopia, headaches, anxiety or depression, anorexia, weight loss, visual disturbances, chest pain, urinary or bowel difficulties, bone pain, or neurological problems. PHYSICAL EXAMINATION: The patient is a well-developed, well-nourished male in no acute distress. HEENT exam is normocephalic, atraumatic. Extraocular movements are intact. There is no palpable cervical, supraclavicular, infraclavicular, axillary, or inguinal lymphadenopathy present. Lungs are clear to auscultation and percussion. Heart has a regular rate and rhythm. Abdomen is benign with no hepatosplenomegaly, masses, or tenderness. Rectal examination reveals a normal anal sphincter tone. His prostate is smooth with no evidence of nodularity. Skeletal examination reveals no tenderness to pressure or percussion of the bony skeleton. Extremities reveal no clubbing, cyanosis, or edema. Neurologic exam is grossly intact, as is the remainder of the physical examination. ASSESSMENT: The patient is clinically doing well at this point. He is scheduled for surgery on 07/08/2019 in one month. In addition, he is continuing his close followup with his medical oncologist, Dr. Avila. In light of this, I am discharging this patient at this time from our followup except on a p.r.n. basis. cc: DO Saurabh Stephens Jr, MD [place], MD
== END ==
LOC: M ONCR 10:06
PROVIDERS: ATTEND Radiology Radiation Oncology
DX: C15.5 Malignant neoplasm of lower third of esophagus (principal)

== ENCOUNTER → 2019-08-04 | Outpatient (CLI) | payer BC ==
[~2019-08-04] MED LIST changes: +LIDOCAINE 1% MDV 20ML VIAL As Ordered ONE; +LOVE1INJ SC; +MIDAZOLAM INJ 2 MG/2 ML VIAL (J2250) As Ordered ONE; +ZANT150T40 PO; +ceFAZolin 1GM INJ (J0690 PER 500MG) As Ordered ONE; +diphenhydrAMINE INJ 50MG/ML VIAL (J1200) As Ordered ONE; +fentaNYL 100 MCG/2 ML INJECTION (J3010) As Ordered ONE
--- NOTE | 2019-08-04 09:16 | IRHP ---
[facility] IR Pre-Procedure H & P General Date of Service: Aug 04, 2019 Procedure: Same Day Surgery Interval History and Physical I have seen the patient and reviewed last H & P performed within 30 days. There is no significant interval change. History of Present Illness Chief Complaint The patient is a 64-year-old male admitted with a reason for visit of Esophageal Ca. PRE-PROCEDURE DIAGNOSIS: esophageal ca HEART: normal rate. LUNGS: normal breathing at rest. ASA Classification ASA Classification: II-Mild systemic disease Mallampati Score: I NPO: Yes Problems with prior sedation: No Obstructive Sleep Apnea: No Plan moderate sedation Allergies Coded Allergies: No Known Allergies (Unverified , 03/25/19) Home Medications Scheduled Enoxaparin Sodium (Lovenox), 40 MG SC DAILY, (Reported) Linagliptin (Tradjenta), 5 MG PO QAM, (Reported) Ranitidine Hcl (Zantac), 5 MG PO DAILY, (Reported) Discontinued Medications Esomeprazole Magnesium (Nexium), 40 MG PO BID, (Reported) Discontinued Reason: Pt states not taking Magic Mouthwash (First-Mouthwash Blm), 10 ML SSP QID PRN for MUCOSITIS Discontinued Reason: Pt states not taking Morphine Sulfate (Morphine Sulfate Concentrate), 0.5 ML PO PRN PRN for PAIN, (Reported) Discontinued Reason: Pt states not taking Ondansetron HCl (Ondansetron HCl), 8 MG PO Q6H PRN for NAUSEA OR VOMITING Discontinued Reason: Pt states not taking Prochlorperazine Maleate (Prochlorperazine Maleate), 10 MG PO Q8HP PRN for NAUSEA OR VOMITING Discontinued Reason: Pt states not taking VS, I&O, 24H, Fishbone Vital Signs/I&O Vital Signs Date Time Temp Pulse Resp B/P (MAP) Pulse Ox O2 Delivery O2 Flow Rate FiO2 08/04/19 09:00 97.9 78 16 97 Room Air MARIO ALBERTO MCGARRY MD Aug 04, 2019 09:16
--- NOTE | 2019-08-04 10:38 | REP ---
IR Ultrasound and fluoroscopy-guided port placement. IR Ultrasound of the neck. IR Moderate sedation. Clinical information: Esophageal cancer. Physician: Dr. Acuña. Procedure: The patient was advised of the benefits, risks, and alternatives of the procedure and informed consent was obtained. A time-out was performed with verification of the patient's name, MRN, site of procedure and type of procedure to be performed. The patient was positioned in the supine position on the angiographic table. The site was prepped and draped in the usual sterile fashion. Moderate sedation was performed by the physician including the presence of an independent trained observer who assisted and monitored the patient's level of consciousness and physiologic status. Following the administration of fentanyl and Versed , the physician spent 45 minutes of continuous face to face time with the patient. Ultrasound of the neck reveals a patent and compressible right internal jugular vein. A reimbursement specialist radiograph reveals no gross abnormality . The neck and anterior chest wall were anesthetized with lidocaine. The right internal jugular vein was accessed using a microintroducer needle under ultrasound guidance, via a lateral approach. An 018 wire was advanced into the superior vena cava, the needle was removed and a microsheath was placed. An Amplatz wire was then passed into the inferior vena cava. An incision at the internal jugular vein access site and anterior chest wall were made using a scalpel. An incision was made at the anterior chest wall. A small pocket was created using a combination of blunt and sharp dissection. A tunneling device was then used to pass the catheter from the pocket to the neck puncture site. An 8-Lao angio dynamics Smart power port was then positioned in the pocket. The catheter was then measured and cut. The introducer sheath was exchanged for a peel-away sheath. The catheter was passed through the peel-away sheath into the internal jugular vein and the peel-away sheath was removed. The port tip was positioned at the cavoatrial junction . The port was then accessed with a Jeter needle. The port flushes and aspirates well. The puncture site in the neck was closed. The chest wall incision was then closed with 2-0 Vicryl and 4-0 Monocryl. Glue and Steri-Strips were applied. A sterile dressing was then applied. The patient tolerated the procedure well and was returned to the PRU in stable condition. Estimated blood loss: <5 ml. Complications: None. Conclusion: 1. Successful placement of an 8-Lao angio dynamics Smart power port via the right internal jugular vein. The port is ready for immediate use. 2. Patient to follow up in IR clinic in 2 weeks. Thank you for this referral. Electronically Signed by Hannah Acuña MD 08/04/2019 10:36 A
[2019-08-04 11:58] VITALS: BP 135/81
== END ==
LOC: M IRPRO 08:57
PROVIDERS: ATTEND Radiology Diagnostic Radiology
DX: C15.9 Malignant neoplasm of esophagus, unspecified (principal)
CPT/HCPCS: 36561; 76937; 99152; 99153; C1769; C1788; C1894; J0690; J1200; J2250; J3010

== ENCOUNTER → 2019-08-16 | Outpatient (POV) | payer BC ==
[~2019-08-16] VITALS: Ht 182.9 cm; Wt 77.3 kg
[~2019-08-16] MED LIST changes: -LIDOCAINE 1% MDV 20ML VIAL As Ordered ONE; -MIDAZOLAM INJ 2 MG/2 ML VIAL (J2250) As Ordered ONE; -ceFAZolin 1GM INJ (J0690 PER 500MG) As Ordered ONE; -diphenhydrAMINE INJ 50MG/ML VIAL (J1200) As Ordered ONE; -fentaNYL 100 MCG/2 ML INJECTION (J3010) As Ordered ONE
[2019-08-16 10:00] VITALS: BP 127/73
--- NOTE | 2019-08-16 11:49 | IRPN ---
[facility] IR Progress Note IR Progress Note DATE: Aug 16, 2019 FOLLOW-UP: 2 weeks status post right chest wall port placement. No fevers or chills. No pain or discharge. Port scheduled to be used next week. ON EXAMINATION: Right chest wall port site - no tenderness. No fluctuance. No discharge. IMPRESSION: Doing well status post port placement. No further follow-up scheduled unless initiated by patient or infusion. Thank you for this referral Allergies Coded Allergies: No Known Allergies (Unverified , 03/25/19) VS,Fishbone, I+O VS, Fishbone, I+O Vital Signs Date Time Temp Pulse Resp B/P (MAP) Pulse Ox O2 Delivery O2 Flow Rate FiO2 08/16/19 10:00 98.1 92 16 127/73 (91) 98 Room Air MARIO ALBERTO MCGARRY MD Aug 16, 2019 11:49
== END ==
LOC: M IRPOV 09:30
PROVIDERS: ATTEND Radiology Diagnostic Radiology
DX: Z45.2 Encounter for adjustment and management of vascular access device (principal)

== ENCOUNTER → 2020-01-04 | Outpatient (CLI) | payer BC ==
[~2020-01-04] MED LIST changes: +CHLOR25TA PO; +ESOM20CA25 PO; +GASTROGRAFIN SOLUTION 30ML (Q9963) As Ordered ONE; +ISOVUE-370 76% 100ML VIAL (Q9967) As Ordered ONE; +ONDA8TAB10 PO; -ONDA8TAB7 PO
--- NOTE | 2020-01-04 20:17 | REP ---
Clinical: Esophageal carcinoma. Restaging. Technique: Axial contrast enhanced images from the thoracic inlet to the upper abdomen with coronal and sagittal re-formations using 100 ml Isovue 370 intravenous contrast material. Comparison: 03/04/2019. Findings: Evidence for partial esophagectomy and gastric pull-through procedure represents a change from prior examination which demonstrated esophageal stent subsequently removed. The lung chau demonstrate diffuse chronic-appearing interstitial changes with scarring and medial lower lobe bronchiectasis possibly related to radiation therapy as well as small patchy subtle non solid lower lobe infiltrates and small right pleural effusion. These findings are all new as compared to prior examination. Small nonspecific mediastinal and right hilar lymph nodes measure up to approximately 9 mm. Further evaluation of the mediastinum demonstrates mild atherosclerotic changes to the thoracic aorta and coronary arteries along with small pericardial effusion roughly 16 mm maximal thickness. The osseous structures demonstrate age-related changes without focal abnormality. Impression: 1. Evidence for relatively recent esophagectomy and gastric pull-through procedure. 2. Bronchiectasis and medial opacities may reflect changes related to prior radiation therapy. 3. Small right pleural effusion and subtle non solid primarily bibasilar opacities concerning for the possibility of metastatic disease. Electronically Signed by Dave Harden MD 01/04/2020 08:09 P
--- NOTE | 2020-01-04 20:33 | REP ---
Clinical: Esophageal carcinoma. Restaging. Technique: Axial contrast enhanced images from the lung bases to the pubic symphysis using oral (per protocol) and 100 ml Isovue 370 intravenous contrast material with coronal and sagittal re-formations. Comparison: 04/02/2019. Findings: Liver, spleen, pancreas, and bilateral adrenal glands are essentially normal. Subcentimeter hepatic hypodensities are stable and consistent with benign cysts. Kidneys demonstrate bilateral cysts measuring up to 1.3 cm in the right kidney and 2.8 cm in the left kidney. The enteric system is without obstruction or acute inflammatory process. Normal terminal ileum and appendix identified in the right lower quadrant. Pelvis demonstrates normal bladder. Prostate gland is moderately enlarged. No ascites. No free air. Abdominal aorta and vasculature demonstrates atherosclerotic changes without aneurysm or dissection. The musculoskeletal structures demonstrate age-related changes without focal abnormality. Subtle haziness to the mesentery with few small scattered lymph nodes up to 10 mm similar to prior examination and nonspecific in appearance. No abdominal mass lesion identified. Impression: 1. Subtle haziness to the mesentery with few scattered lymph nodes up to 10 mm is nonspecific. 2. Stable benign hepatic and renal cysts. 3. Mild chronic prostatomegaly Electronically Signed by Dave Harden MD 01/04/2020 08:24 P
== END ==
LOC: M RAD 13:17
PROVIDERS: ATTEND Internal Medicine Medical Oncology
DX: C15.9 Malignant neoplasm of esophagus, unspecified (principal)
CPT/HCPCS: 71260; 74177; J1642; Q9963; Q9967

== ENCOUNTER → 2020-02-28 | Outpatient (CLI) | payer BC ==
[~2020-02-28] MED LIST changes: -GASTROGRAFIN SOLUTION 30ML (Q9963) As Ordered ONE; -ISOVUE-370 76% 100ML VIAL (Q9967) As Ordered ONE; -METF-791 PO; +METF-838 PO
--- NOTE | 2020-02-29 10:05 | REP ---
PET/CT: HISTORY: Restaging esophageal carcinoma. Diagnosis February 05, 2019 status post esophagectomy and gastric pull-through chemotherapy concurrent radiation. COMPARISONS: Comparison PET/CT study March 15, 2019 from [facility]. Report of this prior PET/CT is not available at this juncture. Comparison CT study chest abdomen pelvis January 04, 2020. TECHNIQUE: 49 minutes following the intravenous injection of a 8.70 mCi dose of F-18 FDG, three-dimensional PET scintigraphy is acquired from the skull base to the proximal thighs. Triplanar noncontrast CT scanning is acquired through the same anatomic range for attenuation correction, and image registration with scan parameters optimized to minimize radiation exposure to the patient. PET scintigraphy and CT datasets were fused and displayed on a workstation with multiplanar and projection display capability. PET/CT FINDINGS: Head and neck soft tissues are unremarkable. In the thorax, there is no abnormal hilar or mediastinal jessi uptake to suggest metastatic adenopathy. The patient is status post esophageal resection and gastric pull-through. There is a new infiltrate in the right lower lobe superiorly which shows mildly hypermetabolic uptake in an irregular area of opacification. Maximum standard uptake value in this infiltrate is 3.22. Similarly, there is some mild parenchymal consolidation associated with bronchiectasis and bronchitis pattern in the left lower lobe posteriorly and medially. Maximum standard uptake value here is 3.45. This area of consolidation is similar to the January 04, 2020 study. These pulmonary parenchymal changes are most consistent with inflammatory disease. No other abnormal pulmonary parenchymal hypermetabolic uptake is seen. There is a small amount of left pleural fluid visible today. No hypermetabolic pleural uptake. In the abdomen and pelvis, there is normal FDG distribution. No abnormal abdominal or pelvic hypermetabolic uptake is seen. No abnormal jessi uptake is seen. IMPRESSION: Minimally hypermetabolic uptake in two areas of parenchymal opacity in the right lower lobe and left lower lobe, felt to be most consistent with inflammatory disease, pneumonia and bronchiectasis related. Postoperative changes. No other suspicious hypermetabolic uptake. Electronically Signed by Eduardo Nino MD 02/29/2020 10:58 A
== END ==
LOC: M PLARAD 13:26
PROVIDERS: ATTEND Internal Medicine Medical Oncology
DX: C15.9 Malignant neoplasm of esophagus, unspecified (principal); R91.8 Other nonspecific abnormal finding of lung field
CPT/HCPCS: 78815; A9552

== ENCOUNTER → 2020-05-10 | Outpatient (CLI) | payer BC ==
[~2020-05-10] MED LIST changes: +GASTROGRAFIN SOLUTION 30ML (Q9963) As Ordered ONE; +ISOVUE-370 76% 100ML VIAL As Ordered ONE; +MORP1SOL PO; -MORP20SOL PO; +vitamin d3
--- NOTE | 2020-05-10 10:15 | REP ---
Clinical: History of esophageal carcinoma. Restaging. Technique: Axial contrast enhanced images from the thoracic inlet to the upper abdomen (followed by CT of the abdomen and pelvis) using 100 ml Isovue 370 intravenous contrast material. Coronal and sagittal re-formations obtained. Comparison: 01/04/2020, 03/04/2019 Findings: Evidence for prior esophagectomy and gastric pull-through procedure. Small focal area of soft tissue in the subcarinal space remains unchanged. A small pericardial effusion is again noted and may be slightly decreased when compared to 01/04/2020. Thoracic aorta is relatively normal and without aneurysm or dissection. Thyroid gland is unremarkable. No significant axillary, hilar, or mediastinal adenopathy is appreciated. The lung chau demonstrate diffuse chronic interstitial changes along with emphysematous disease, minimal scattered scarring and bronchiectasis. Left lower lobe demonstrates small pleural effusion and irregular posterior medial fibroatelectatic changes with bronchiectasis appearing slightly increased from prior examination, and possibly related to prior radiation therapy. The previously noted subtle nodular opacities in the left lower lobe as well as the previously identified right pleural effusion have resolved. No focal significant acute consolidation or nodule/mass identified on current examination. Osseous structures without focal abnormality. Impression: 1. Mediastinum demonstrates stable changes related to prior esophagectomy and gastric pull-through procedure. 2. Lung chau demonstrate diffuse chronic appearing changes including medial basilar fibrosis/scarring with focal areas of bronchiectasis (left greater than right). Left-sided changes and small left pleural effusion appears slightly more pronounced than prior examination and nonspecific although possibly related to prior radiation therapy. 3. Previously noted subtle nodular opacities have resolved and no focal areas of acute consolidation or obvious metastatic lesions are identified. No adenopathy. Electronically Signed by Dave Harden MD 05/10/2020 10:06 A
--- NOTE | 2020-05-10 10:30 | REP ---
Clinical: Esophageal cancer. Restaging. Technique: Axial contrast enhanced images from the lung bases to the pubic symphysis using oral (per protocol) and 100 ml Isovue 370 intravenous contrast material with coronal and sagittal re-formations. Comparison: 01/04/2020, 04/02/2019. Findings: The patient is noted to be status post esophagectomy and gastric pull-through procedure. Stable normal postsurgical changes in the epigastric region noted. Liver, spleen, pancreas, bilateral adrenal glands and kidneys are normal / stable. Evidence for prior cholecystectomy. Kidneys demonstrate stable benign cysts measuring up to 2 cm in the right kidney and 2.9 cm in left kidney. Small and large bowel without obstruction or acute inflammatory process. Normal terminal ileum and appendix are identified in the right lower quadrant. Few sigmoid diverticula noted without acute diverticulitis. Pelvis demonstrates normal bladder and mildly prominent prostate gland. No ascites. No free air. No significant adenopathy or obvious abdominopelvic mass lesion. Incidental retroaortic left renal vein noted. Abdominal aorta without aneurysm or dissection. Osseous structures demonstrate degenerative changes without acute abnormality. Impression: 1. Evidence of prior gastric pull-through surgery. 2. Stable simple benign renal cysts. 3. Few scattered sigmoid diverticula. 4. Mild prostatomegaly. 5. No evidence for metastatic disease. No ascites, focal inflammatory stranding, or adenopathy. Electronically Signed by Dave Harden MD 05/10/2020 10:22 A
== END ==
LOC: M RAD 07:54
PROVIDERS: ATTEND Internal Medicine Medical Oncology
DX: Z85.01 Personal history of malignant neoplasm of esophagus (principal); Z90.49 Acquired absence of other specified parts of digestive tract; R91.8 Other nonspecific abnormal finding of lung field; N28.1 Cyst of kidney, acquired; N40.0 Benign prostatic hyperplasia without lower urinary tract symptoms
CPT/HCPCS: 71260; 74177; J1642; Q9963; Q9967

== ENCOUNTER → 2020-07-23 | Outpatient (CLI) | payer BC ==
[~2020-07-23] MED LIST changes: -GASTROGRAFIN SOLUTION 30ML (Q9963) As Ordered ONE; +ISOVUE-300 61% 50ML VIAL As Ordered ONE; -ISOVUE-370 76% 100ML VIAL As Ordered ONE; +LIDOCAINE 1% MDV 20ML VIAL As Ordered ONE; +MIDAZOLAM INJ 2MG/2ML VIAL (J2250 PER 1MG) As Ordered ONE; +ceFAZolin 1GM VIAL (J0690 PER 500MG) As Ordered ONE; +diphenhydrAMINE 50MG/ML VIAL (J1200) As Ordered ONE; +fentaNYL 100 MCG/2 ML INJECTION (J3010) As Ordered ONE
--- NOTE | 2020-07-23 10:35 | IRHP ---
[facility] IR Pre-Procedure H & P General Date of Service: Jul 23, 2020 Procedure: Same Day Surgery Interval History and Physical I have seen the patient and reviewed last H & P performed within 30 days. There is no significant interval change. History of Present Illness Chief Complaint The patient is a 65-year-old male admitted with a reason for visit of Esophageal Ca. PRE-PROCEDURE DIAGNOSIS: esophageal cancer HEART: normal rate. LUNGS: normal breathing at rest. ASA Classification ASA Classification: III-Severe systemic dis. Mallampati Score: II NPO: Yes Problems with prior sedation: No Obstructive Sleep Apnea: No Plan moderate sedation Allergies Coded Allergies: No Known Allergies (Unverified , 03/25/19) Home Medications Scheduled [vitamin d3], 1 TAB DAILY, (Reported) Discontinued Medications Esomeprazole Magnesium (Esomeprazole Magnesium Dr), 20 MG PO BID, (Reported) Discontinued Reason: Pt states not taking Linagliptin (Tradjenta), 5 MG PO QAM, (Reported) Discontinued Reason: Pt states not taking VS, I&O, 24H, Fishbone Vital Signs/I&O Vital Signs Date Time Temp Pulse Resp B/P (MAP) Pulse Ox O2 Delivery O2 Flow Rate FiO2 07/23/20 10:15 66 16 98 Room Air 07/23/20 10:05 2 07/23/20 08:28 98.9 MARIO ALBERTO MCGARRY MD Jul 23, 2020 10:35
--- NOTE | 2020-07-23 10:37 | POST-OPPD ---
Postoperative Procedure Note Date Of Procedure: Jul 23, 2020 Time Of Procedure: 10:36 Port Removal / Explant Clinical Information:Esophageal cancer. Treatment complete. Patient would like port removed. Physician: Dr. Acuña Procedure: The patient was advised of the benefits, risks, and alternatives of the procedure and informed consent was obtained. A time out was performed with verification of the patient's name, MRN, site of procedure, and type of procedure to be performed. The patient was positioned in the supine position on the angiographic table. The site was prepped and draped in the usual sterile fashion. Moderate sedation was performed by the physician including the presence of an independent trained observer who assisted in monitoring the patient's level of consciousness and physiological status. Following the administration of fentanyl and Versed the physician spent 30 minutes of continuous [id number] time with the patient. A fuel cell designer radiograph reveals a right sided port. The soft tissues overlying the port were anesthetized with lidocaine. An incision was made over the port using a 15 blade scalpel in the location of the prior incision. The catheter was then freed with blunt dissection and extracted. Pressure was applied to obtain hemostasis. The port was then freed with blunt dissection and subsequently removed. There were no signs of infection. After hemostasis was achieved, the incision was closed with interrupted deep 3-0 Vicryl sutures and subcuticular Monocryl suture followed by glue and steri-strips. The site was covered with a sterile dressing. The patient tolerated the procedure well and was returned to the PRU in stable condition. EBL:Less than 5 mL Complications:None. Conclusions: 1. Successful explant of a right-sided port. 2. No signs of infection. Thank you for this referral MARIO ALBERTO ACUÑA MD Jul 23, 2020 10:37
[2020-07-23 12:15] VITALS: BP 121/67
== END ==
LOC: M IRPRO 08:21
PROVIDERS: ATTEND Specialist
DX: C15.9 Malignant neoplasm of esophagus, unspecified (principal)
CPT/HCPCS: 36590; 99152; 99153; J0690; J1200; J1644; J2250; J3010

== ENCOUNTER → 2021-12-30 | Outpatient (CLI) | payer MEDICARE, BC ==
[~2021-12-30] MED LIST changes: +CENTTAB16 PO; +CLAR10CA3 PO; +COVI100V IM; +CRES10TA PO; +ECOT81TA5 PO; +ESOM40CA35 PO; -ISOVUE-300 61% 50ML VIAL As Ordered ONE; -LIDOCAINE 1% MDV 20ML VIAL As Ordered ONE; -LISI10TA15 PO; +LISI10TA24 PO; -MIDAZOLAM INJ 2MG/2ML VIAL (J2250 PER 1MG) As Ordered ONE; +OMEG12003 PO; +ONDA-84 PO; -ONDA8TAB10 PO; -PROC10TA4 PO; +PROC10TA5 PO; +ROSU10TA6; +VITA100093 PO; -ceFAZolin 1GM VIAL (J0690 PER 500MG) As Ordered ONE; -diphenhydrAMINE 50MG/ML VIAL (J1200) As Ordered ONE; -fentaNYL 100 MCG/2 ML INJECTION (J3010) As Ordered ONE
== END ==
LOC: M PLARAD 12:38
PROVIDERS: ATTEND Internal Medicine Medical Oncology
DX: C15.8 Malignant neoplasm of overlapping sites of esophagus (principal)
CPT/HCPCS: 78815; A9552

== ENCOUNTER → 2022-04-02 | Outpatient (CLI) | payer MEDICARE, BC | LOC: M PLAIMG 10:34 | PROVIDERS: ATTEND Internal Medicine Pulmonary Disease | DX: Z85.01 Personal history of malignant neoplasm of esophagus (principal) ==

== ENCOUNTER → 2022-05-11 | Outpatient (CLI) | payer MEDICARE, BC ==
[~2022-05-11] MED LIST changes: +GABA-1171
== END ==
LOC: M LABSMTC 10:58
PROVIDERS: ATTEND Anesthesiology
DX: Z20.828 Contact with and (suspected) exposure to other viral communicable diseases (principal); Z11.59 Encounter for screening for other viral diseases

== ENCOUNTER → 2022-05-15 | Outpatient (CLI) | payer MEDICARE, BC ==
[~2022-05-15] MED LIST changes: +LIDOCAINE 1% MDV 20ML VIAL As Ordered ONE; +MIDAZOLAM INJ 2MG/2ML VIAL (J2250 PER 1MG) As Ordered ONE; +NS 1,000 ML IV SCH; +ceFAZolin 2 GM/D5W 50 ML IV BAG (J0690 PER 500MG) As Ordered ONE; +ceFAZolin SOD 2 GM in IV 1 EA IV ONE; +diphenhydrAMINE 50MG/ML VIAL (J1200) As Ordered ONE; +fentaNYL 100 MCG/2 ML INJECTION As Ordered ONE
[2022-05-15 17:27] VITALS: BP 121/71
== END ==
LOC: M IRPRO 13:04
PROVIDERS: ATTEND Internal Medicine Medical Oncology
DX: C15.9 Malignant neoplasm of esophagus, unspecified (principal)
CPT/HCPCS: 36561; 99152; 99153; C1769; C1788; C1894; J0690; J1200; J1642; J1644; J2250; J3010

== ENCOUNTER → 2022-06-03 | Outpatient (POV) | payer MEDICARE, BC ==
[~2022-06-03] VITALS: Ht 182.9 cm; Wt 90.9 kg
[~2022-06-03] MED LIST changes: -LIDOCAINE 1% MDV 20ML VIAL As Ordered ONE; -MIDAZOLAM INJ 2MG/2ML VIAL (J2250 PER 1MG) As Ordered ONE; +NEUR300C PO; -NS 1,000 ML IV SCH; -ceFAZolin 2 GM/D5W 50 ML IV BAG (J0690 PER 500MG) As Ordered ONE; -ceFAZolin SOD 2 GM in IV 1 EA IV ONE; -diphenhydrAMINE 50MG/ML VIAL (J1200) As Ordered ONE; -fentaNYL 100 MCG/2 ML INJECTION As Ordered ONE
[2022-06-03 09:35] VITALS: BP 153/85
== END ==
LOC: M IRPOV 09:07
PROVIDERS: ATTEND Radiology Diagnostic Radiology
DX: Z48.812 Encounter for surgical aftercare following surgery on the circulatory system (principal); Z45.2 Encounter for adjustment and management of vascular access device

== ENCOUNTER → 2022-06-11 | Outpatient (CLI) | payer MEDICARE, BC | LOC: M WHC 14:05 | PROVIDERS: ATTEND Nurse Practitioner | DX: R22.42 Localized swelling, mass and lump, left lower limb (principal); M79.605 Pain in left leg ==

== ENCOUNTER → 2022-08-25 | Outpatient (CLI) | payer MEDICARE, BC ==
[~2022-08-25] MED LIST changes: +GASTROGRAFIN SOLUTION 30ML As Ordered ONE; +ISOVUE-370 76% 100ML VIAL As Ordered ONE
== END ==
LOC: M RAD 11:56
PROVIDERS: ATTEND Internal Medicine Medical Oncology
DX: C15.9 Malignant neoplasm of esophagus, unspecified (principal)
CPT/HCPCS: 71260; 74177; Q9963; Q9967

== ENCOUNTER → 2022-12-01 | Outpatient (CLI) | payer MEDICARE, BC ==
[~2022-12-01] MED LIST changes: +GABA-282; +LOSA50TA28; +LOSA50TA5 PO
== END ==
LOC: M RAD 11:20
PROVIDERS: ATTEND Internal Medicine Medical Oncology
DX: C15.9 Malignant neoplasm of esophagus, unspecified (principal)
CPT/HCPCS: 71260; 74177; Q9963; Q9967

== ENCOUNTER → 2022-12-11 | Outpatient (CLI) | payer MEDICARE, BC ==
[~2022-12-11] MED LIST changes: -GASTROGRAFIN SOLUTION 30ML As Ordered ONE; -ISOVUE-370 76% 100ML VIAL As Ordered ONE
== END ==
LOC: M PLAIMG 10:24
PROVIDERS: ATTEND Physician Assistant Medical
DX: R04.0 Epistaxis (principal)

== ENCOUNTER → 2023-01-12 | Outpatient (CLI) | payer MEDICARE, BC ==
[~2023-01-12] MED LIST changes: +OXYC1TAB23 PO
== END ==
LOC: M PLARAD 11:45
PROVIDERS: ATTEND Internal Medicine Medical Oncology
DX: C15.5 Malignant neoplasm of lower third of esophagus (principal)
CPT/HCPCS: 78815; A9552

== ENCOUNTER → 2023-02-04 | Outpatient (CLI) | payer MEDICARE, BC | LOC: M ONCR 08:52 | PROVIDERS: ATTEND General Practice | DX: C15.5 Malignant neoplasm of lower third of esophagus (principal); C78.6 Secondary malignant neoplasm of retroperitoneum and peritoneum; E11.9 Type 2 diabetes mellitus without complications; R59.0 Localized enlarged lymph nodes; Z79.899 Other long term (current) drug therapy; Z80.3 Family history of malignant neoplasm of breast; Z87.891 Personal history of nicotine dependence; Z98.84 Bariatric surgery status ==

== ENCOUNTER 2023-02-13 10:20 | Outpatient (RCR) | payer MEDICARE, BC | END 2023-02-15 | LOC: M ONCR 10:20 | PROVIDERS: ATTEND General Practice | DX: C15.5 Malignant neoplasm of lower third of esophagus (principal); C77.3 Secondary and unspecified malignant neoplasm of axilla and upper limb lymph nodes; C78.6 Secondary malignant neoplasm of retroperitoneum and peritoneum ==

== ENCOUNTER 2023-03-10 14:54 | Outpatient (RCR) | payer MEDICARE, BC | END 2023-03-18 | LOC: M ONCR 14:54 | PROVIDERS: ATTEND General Practice | DX: C15.5 Malignant neoplasm of lower third of esophagus (principal); C77.3 Secondary and unspecified malignant neoplasm of axilla and upper limb lymph nodes; C78.6 Secondary malignant neoplasm of retroperitoneum and peritoneum ==

== ENCOUNTER → 2023-04-06 | Outpatient (CLI) | payer MEDICARE, BC ==
[~2023-04-06] MED LIST changes: +GASTROGRAFIN SOLUTION 30ML As Ordered ONE; +ISOVUE-370 76% 100ML VIAL As Ordered ONE
== END ==
LOC: M RAD 13:09
PROVIDERS: ATTEND Internal Medicine Medical Oncology
DX: C15.9 Malignant neoplasm of esophagus, unspecified (principal)
CPT/HCPCS: 71260; 74177; Q9963; Q9967

== ENCOUNTER → 2023-04-10 | Outpatient (CLI) | payer MEDICARE, BC ==
[~2023-04-10] MED LIST changes: -GASTROGRAFIN SOLUTION 30ML As Ordered ONE; -ISOVUE-370 76% 100ML VIAL As Ordered ONE
== END ==
LOC: M ONCR 10:57
PROVIDERS: ATTEND General Practice
DX: C78.6 Secondary malignant neoplasm of retroperitoneum and peritoneum (principal); Z92.3 Personal history of irradiation

== ENCOUNTER → 2023-07-01 | Outpatient (CLI) | payer MEDICARE, BC ==
[~2023-07-01] MED LIST changes: +GABA-282 PO; +GASTROGRAFIN SOLUTION 30ML As Ordered ONE; +ISOVUE-370 76% 100ML VIAL As Ordered ONE; +LOSA25TA13
== END ==
LOC: M RAD 13:06
PROVIDERS: ATTEND Internal Medicine Medical Oncology
DX: C15.9 Malignant neoplasm of esophagus, unspecified (principal)
CPT/HCPCS: 71260; 74177; Q9963; Q9967

== ENCOUNTER → 2023-08-20 | Outpatient (CLI) | payer MEDICARE, BC ==
[~2023-08-20] MED LIST changes: +ASPI81CH33 PO; -GASTROGRAFIN SOLUTION 30ML As Ordered ONE; -ISOVUE-370 76% 100ML VIAL As Ordered ONE; +LOSA25TA13 PO
== END ==
LOC: M PAL 08:03
PROVIDERS: ATTEND Nurse Practitioner Adult Health
DX: C15.5 Malignant neoplasm of lower third of esophagus (principal); C78.6 Secondary malignant neoplasm of retroperitoneum and peritoneum; C77.3 Secondary and unspecified malignant neoplasm of axilla and upper limb lymph nodes; G89.3 Neoplasm related pain (acute) (chronic); Z51.5 Encounter for palliative care; Z66 Do not resuscitate; Z79.82 Long term (current) use of aspirin; Z79.891 Long term (current) use of opiate analgesic; Z79.899 Other long term (current) drug therapy; Z80.3 Family history of malignant neoplasm of breast; Z87.891 Personal history of nicotine dependence; Z92.3 Personal history of irradiation; Z92.21 Personal history of antineoplastic chemotherapy

== ENCOUNTER → 2023-09-30 | Outpatient (CLI) | payer MEDICARE, BC ==
[~2023-09-30] MED LIST changes: +GASTROGRAFIN SOLUTION 30ML As Ordered ONE; +ISOVUE-370 76% 100ML VIAL As Ordered ONE
== END ==
LOC: M RAD 11:03
PROVIDERS: ATTEND Nurse Practitioner
DX: C15.9 Malignant neoplasm of esophagus, unspecified (principal)
CPT/HCPCS: 71260; 74177; Q9963; Q9967

== ENCOUNTER → 2023-11-17 | Outpatient (CLI) | payer MEDICARE ==
[~2023-11-17] VITALS: Ht 182.9 cm; Wt 78.6 kg
[~2023-11-17] MED LIST changes: +ATRO1DRO PO; +CALC500C16 PO; -GASTROGRAFIN SOLUTION 30ML As Ordered ONE; -ISOVUE-370 76% 100ML VIAL As Ordered ONE; +TRAN1DIS4 TOP
[2023-11-17 08:11] VITALS: BP 136/77; O2SAT 97
== END ==
LOC: M PAL 08:04
PROVIDERS: ATTEND Nurse Practitioner Adult Health
DX: C15.5 Malignant neoplasm of lower third of esophagus (principal); C78.6 Secondary malignant neoplasm of retroperitoneum and peritoneum; C77.3 Secondary and unspecified malignant neoplasm of axilla and upper limb lymph nodes; G89.3 Neoplasm related pain (acute) (chronic); Z51.5 Encounter for palliative care; Z66 Do not resuscitate; Z79.82 Long term (current) use of aspirin; Z79.891 Long term (current) use of opiate analgesic; Z79.899 Other long term (current) drug therapy; Z80.3 Family history of malignant neoplasm of breast; Z87.891 Personal history of nicotine dependence; Z92.3 Personal history of irradiation; Z92.21 Personal history of antineoplastic chemotherapy; Z90.49 Acquired absence of other specified parts of digestive tract

== ENCOUNTER → 2023-12-17 | Outpatient (CLI) | payer MEDICARE ==
[~2023-12-17] VITALS: Ht 182.9 cm; Wt 77.7 kg
[~2023-12-17] MED LIST changes: +ATRO2DRO4 PO; +POTA-298 PO
[2023-12-17 08:09] VITALS: BP 118/72; O2SAT 98
== END ==
LOC: M PAL 08:00
PROVIDERS: ATTEND Internal Medicine
DX: G89.3 Neoplasm related pain (acute) (chronic) (principal); C15.5 Malignant neoplasm of lower third of esophagus; C78.6 Secondary malignant neoplasm of retroperitoneum and peritoneum; C77.3 Secondary and unspecified malignant neoplasm of axilla and upper limb lymph nodes; Z51.5 Encounter for palliative care; Z66 Do not resuscitate; Z79.82 Long term (current) use of aspirin; Z79.891 Long term (current) use of opiate analgesic; Z79.899 Other long term (current) drug therapy; Z80.3 Family history of malignant neoplasm of breast; Z87.891 Personal history of nicotine dependence; Z90.49 Acquired absence of other specified parts of digestive tract; Z92.21 Personal history of antineoplastic chemotherapy; Z92.3 Personal history of irradiation

== ENCOUNTER → 2023-12-22 | Outpatient (CLI) | payer MEDICARE | LOC: M PLAIMG 13:41 | PROVIDERS: ATTEND Internal Medicine Medical Oncology | DX: C15.9 Malignant neoplasm of esophagus, unspecified (principal); I35.1 Nonrheumatic aortic (valve) insufficiency ==

== ENCOUNTER → 2024-01-11 | Outpatient (CLI) | payer MEDICARE | LOC: M PLARAD 07:32 | PROVIDERS: ATTEND Nurse Practitioner | DX: C15.8 Malignant neoplasm of overlapping sites of esophagus (principal) | CPT/HCPCS: 78815; A9552 ==

== ENCOUNTER → 2024-01-27 | Outpatient (CLI) | payer MEDICARE ==
[~2024-01-27] VITALS: Ht 182.9 cm; Wt 79.2 kg
[~2024-01-27] MED LIST changes: +LONS0.27 PO; +MORP-69 PO
[2024-01-27 09:00] VITALS: BP 129/78; O2SAT 98
== END ==
LOC: M PAL 08:53
PROVIDERS: ATTEND Nurse Practitioner Adult Health
DX: G89.3 Neoplasm related pain (acute) (chronic) (principal); C15.5 Malignant neoplasm of lower third of esophagus; C79.51 Secondary malignant neoplasm of bone; C78.6 Secondary malignant neoplasm of retroperitoneum and peritoneum; C77.3 Secondary and unspecified malignant neoplasm of axilla and upper limb lymph nodes; Z51.5 Encounter for palliative care; Z66 Do not resuscitate; Z79.82 Long term (current) use of aspirin; Z79.891 Long term (current) use of opiate analgesic; Z79.899 Other long term (current) drug therapy; Z80.3 Family history of malignant neoplasm of breast; Z87.891 Personal history of nicotine dependence; Z90.49 Acquired absence of other specified parts of digestive tract; Z92.21 Personal history of antineoplastic chemotherapy; Z92.3 Personal history of irradiation

== ENCOUNTER → 2024-02-02 | Outpatient (CLI) | payer MEDICARE, OTHER ==
[~2024-02-02] MED LIST changes: +SUCR1ORA PO; +calcium PO
== END ==
LOC: M ONCR 09:23
PROVIDERS: ATTEND General Practice
DX: C78.6 Secondary malignant neoplasm of retroperitoneum and peritoneum (principal); C15.5 Malignant neoplasm of lower third of esophagus; Z71.2 Person consulting for explanation of examination or test findings; Z79.82 Long term (current) use of aspirin; Z79.891 Long term (current) use of opiate analgesic; Z79.899 Other long term (current) drug therapy; Z87.891 Personal history of nicotine dependence; Z92.3 Personal history of irradiation

== ENCOUNTER 2024-02-12 10:52 | Day surgery (SDC) | payer MEDICARE ==
[~2024-02-12] VITALS: Ht 182.9 cm; Wt 87.1 kg
[2024-02-12] MEDS: NS 1,000 ML IV ONE (06:00)
[2024-02-12] MEDS ORDERED: propofoL 200 MG/20 ML VIAL As Ordered ONE (12:19)
[2024-02-12 12:42] VITALS: TEMP 97.4
[2024-02-12 13:00] VITALS: BP 158/81; O2SAT 95
== END 2024-02-12 13:07 | disposition home or self-care (01) ==
LOC: M OPP 10:52
PROVIDERS: ATTEND Internal Medicine Gastroenterology
DX: K21.00 Gastro-esophageal reflux disease with esophagitis, without bleeding (principal); K31.89 Other diseases of stomach and duodenum; R13.10 Dysphagia, unspecified; Z98.890 Other specified postprocedural states; Z79.899 Other long term (current) drug therapy; Z79.82 Long term (current) use of aspirin; Z85.01 Personal history of malignant neoplasm of esophagus; D69.6 Thrombocytopenia, unspecified; Z85.028 Personal history of other malignant neoplasm of stomach; Z85.830 Personal history of malignant neoplasm of bone; Z87.891 Personal history of nicotine dependence

== ENCOUNTER → 2024-03-08 | Outpatient (CLI) | payer MEDICARE ==
[~2024-03-08] VITALS: Ht 182.9 cm; Wt 76.1 kg
[~2024-03-08] MED LIST changes: -ROSU10TA6; +ROSU10TA61
[2024-03-08 08:59] VITALS: BP 146/88; O2SAT 99
== END ==
LOC: M PAL 08:50
PROVIDERS: ATTEND Nurse Practitioner Adult Health
DX: G89.3 Neoplasm related pain (acute) (chronic) (principal); C15.5 Malignant neoplasm of lower third of esophagus; C79.51 Secondary malignant neoplasm of bone; C78.6 Secondary malignant neoplasm of retroperitoneum and peritoneum; C77.3 Secondary and unspecified malignant neoplasm of axilla and upper limb lymph nodes; Z51.5 Encounter for palliative care; Z66 Do not resuscitate; Z79.82 Long term (current) use of aspirin; Z79.899 Other long term (current) drug therapy; Z80.3 Family history of malignant neoplasm of breast; Z87.891 Personal history of nicotine dependence; Z90.49 Acquired absence of other specified parts of digestive tract; Z92.21 Personal history of antineoplastic chemotherapy; Z92.3 Personal history of irradiation

== ENCOUNTER → 2024-03-18 | Outpatient (RCR) | payer MEDICARE ==
[~2024-03-18] MED LIST changes: +CALTAB PO
== END ==
LOC: M ONCR 02-22 13:57
PROVIDERS: ATTEND General Practice
DX: Z51.0 Encounter for antineoplastic radiation therapy (principal); C78.6 Secondary malignant neoplasm of retroperitoneum and peritoneum

== ENCOUNTER 2024-03-21 12:01 | Outpatient (RCR) | payer MEDICARE | END 2024-04-17 | LOC: M ONCR 12:01 | PROVIDERS: ATTEND General Practice | DX: Z51.0 Encounter for antineoplastic radiation therapy (principal); C78.6 Secondary malignant neoplasm of retroperitoneum and peritoneum; C77.3 Secondary and unspecified malignant neoplasm of axilla and upper limb lymph nodes; C15.5 Malignant neoplasm of lower third of esophagus ==

== ENCOUNTER → 2024-04-19 | Outpatient (CLI) | payer MEDICARE ==
[~2024-04-19] VITALS: Ht 182.9 cm; Wt 73.3 kg
[2024-04-19 13:12] VITALS: BP 132/75; O2SAT 99
== END ==
LOC: M PAL 12:48
PROVIDERS: ATTEND Nurse Practitioner Adult Health
DX: C15.5 Malignant neoplasm of lower third of esophagus (principal); C79.51 Secondary malignant neoplasm of bone; G89.3 Neoplasm related pain (acute) (chronic); C78.6 Secondary malignant neoplasm of retroperitoneum and peritoneum; C77.3 Secondary and unspecified malignant neoplasm of axilla and upper limb lymph nodes; Z51.5 Encounter for palliative care; Z66 Do not resuscitate; Z79.82 Long term (current) use of aspirin; Z79.899 Other long term (current) drug therapy; Z79.891 Long term (current) use of opiate analgesic; Z80.3 Family history of malignant neoplasm of breast; Z87.891 Personal history of nicotine dependence; Z90.49 Acquired absence of other specified parts of digestive tract; Z92.21 Personal history of antineoplastic chemotherapy; Z92.3 Personal history of irradiation

== ENCOUNTER → 2024-05-31 | Outpatient (CLI) | payer MEDICARE ==
[~2024-05-31] VITALS: Ht 182.9 cm; Wt 71.2 kg
[~2024-05-31] MED LIST changes: +MIRT1TAB PO; +MORP30TASA PO; +OXYC10TA12 PO
[2024-05-31 13:09] VITALS: BP 131/84; O2SAT 98
== END ==
LOC: M PAL 12:57
PROVIDERS: ATTEND Nurse Practitioner Adult Health
DX: G89.3 Neoplasm related pain (acute) (chronic) (principal); C15.5 Malignant neoplasm of lower third of esophagus; C79.51 Secondary malignant neoplasm of bone; C78.6 Secondary malignant neoplasm of retroperitoneum and peritoneum; C77.3 Secondary and unspecified malignant neoplasm of axilla and upper limb lymph nodes; R63.0 Anorexia; Z51.5 Encounter for palliative care; Z66 Do not resuscitate; Z79.891 Long term (current) use of opiate analgesic; Z79.899 Other long term (current) drug therapy; Z80.3 Family history of malignant neoplasm of breast; Z87.891 Personal history of nicotine dependence; Z90.49 Acquired absence of other specified parts of digestive tract; Z92.21 Personal history of antineoplastic chemotherapy; Z92.3 Personal history of irradiation

== ENCOUNTER → 2024-06-15 | Outpatient (CLI) | payer MEDICARE ==
[~2024-06-15] MED LIST changes: -MORP30TASA PO; -OXYC10TA12 PO
[2024-06-15 12:08] VITALS: TEMP 97.1
[2024-06-15 13:09] LABS: PH BODY FLUID 7.615 UNITS (NOT ESTABLISHED); SOURCE, BODY FLUID pH PLEURAL
[2024-06-15 13:12] LABS: APPEARANCE, BODY FLUID CLEAR (CLEAR); PLEURAL FL COLOR PALE YELLOW (COLORLESS); SOURCE, BODY FLUID PLEURAL
[2024-06-15 13:53] LABS: SOURCE, BODY FLUID GLUCOSE PLEURAL; SOURCE, BODY FLUID TOT PROTEIN PLEURAL; TOTAL PROTEIN, BODY FLUID 3.9 G/DL (NOT ESTABLISHED)
[2024-06-15 13:54] LABS: AMYLASE, BODY FLUID < 20 U/L (NOT ESTABLISHED); LDH, BODY FLUID 136 U/L (NOT ESTABLISHED); SOURCE, BODY FLUID AMYLASE PLEURAL; SOURCE, BODY FLUID LDH PLEURAL
[2024-06-15 14:28] LABS: AST(SGOT), BODY FLUID 9 U/L (NOT ESTABLISHED); SOURCE, BODY FLUID AST PLEURAL
[2024-06-15 14:30] VITALS: BP 126/72; O2SAT 96
== END ==
LOC: M IRPRO 11:56
PROVIDERS: ATTEND Internal Medicine Hematology & Oncology
DX: J90 Pleural effusion, not elsewhere classified (principal); C15.9 Malignant neoplasm of esophagus, unspecified

== ENCOUNTER → 2024-06-22 | Outpatient (CLI) | payer MEDICARE ==
[~2024-06-22] MED LIST changes: +MORP30TASA PO; +OXYC10TA12 PO
== END ==
LOC: M ONCR 12:44
PROVIDERS: ATTEND General Practice
DX: R64 Cachexia (principal); C78.6 Secondary malignant neoplasm of retroperitoneum and peritoneum; C77.3 Secondary and unspecified malignant neoplasm of axilla and upper limb lymph nodes; C15.5 Malignant neoplasm of lower third of esophagus; Z79.631 Long term (current) use of antimetabolite agent; Z79.891 Long term (current) use of opiate analgesic; Z79.899 Other long term (current) drug therapy; Z87.891 Personal history of nicotine dependence; Z90.49 Acquired absence of other specified parts of digestive tract; Z92.3 Personal history of irradiation